=== PATIENT | female | born 1995 | race Caucasian/White ===

== ENCOUNTER 2021-04-03 15:12 | Emergency (ER) | payer OTHER ==
[~2021-04-03] VITALS: Ht 160 cm; Wt 67.1 kg
[2021-04-03 15:21] VITALS: BP 124/66
--- NOTE | 2021-04-03 15:34 | NUR ---
PT AMB TO BED 11
--- NOTE | 2021-04-03 15:50 | NUR ---
25 Y/O FEMALE BIB SELF. PATIENT PRESENTS TO ED WITH ABD PAIN X2 WEEKS. PT STATES PAIN STARTED IN LRQ AND MIGRATED TO RUQ; PAIN WORSENS WITH DEEP INHALE OR TWISTING MOVEMENT, AND RADIATED TO ALL QUADRANTS. PT STATES "SOMETIMES FEELS LIKE PINS/NEEDLES." DENIES N/V/D; SKIN IS PINK/WARM/DRY; AAOX4 WITH EVEN AND STEADY GAIT; PT DENIES ANY FEVER, CP, SOB, OR COUGH AT THIS TIME; PATIENT STATES PAIN OF 7/10 AT THIS TIME; VSS; PATIENT POSITIONED FOR COMFORT; HOB ELEVATED; BEDRAILS UP X2; BED DOWN. ER MD MADE AWARE OF PT STATUS. PT HAS CALM DEMEANOR, UNLABORED BREATHING W/ EQUAL CHEST RISE/FALL, PT AMBULATES W/O ASSISTANCE. HX: DENIES ALLERGIES: "HARD BOILED EGGS" MEDS: DENIES
--- NOTE | 2021-04-03 16:13 | NUR ---
ER PA AT BEDSIDE
[2021-04-03] MEDS ORDERED: DICYCLOMINE HCL LIQUID 20 MG, ALUMINUM HYD/MAG/SIMETHICONE 30 ML, LIDOCAINE VISCOUS 2% ... PO ONE ×3 (16:25)
--- NOTE | 2021-04-03 16:29 | NUR ---
LABS AT BEDSIDE
[2021-04-03] MEDS ORDERED: ALUMINUM HYD/MAG/SIMETHICONE 30 ML UDC ONE ×2 (16:38)
[2021-04-03] MEDS ORDERED: DICYCLOMINE HCL LIQUID 10 MG/5 ML UDC ONE (16:38)
[2021-04-03 16:39] LABS: BASOPHILS % (AUTO) 0.4 % (0.0-2.0); EOSINOPHILS % (AUTO) 0.6 % (0.0-4.0); HEMATOCRIT 40.4 % (36-48); LYMPHOCYTES # (AUTO) 1.4 K/uL (2.5-16.5); LYMPHOCYTES % (AUTO) 29.8 % (20.5-51.1); MEAN CORPUSCULAR HEMOGLOBIN 30 pg (27-31); MEAN CORPUSCULAR HGB CONC 35 g/dL (33-37); MEAN CORPUSCULAR VOLUME 86.4 fL (80-94); MONOCYTES # (AUTO) 0.3 K/uL (0.8-1.0); MONOCYTES % (AUTO) 6.2 % (1.7-9.3); PLATELET COUNT (AUTO) 288 K/uL (140-450); RED BLOOD CELL COUNT(AUTO) 4.67 MIL/uL (4.20-5.40); RED CELL DISTRIBUTION WIDTH 12.4 % (11.6-13.7); WHITE BLOOD COUNT (AUTO) 4.8 K/uL (4.8-10.8)
[2021-04-03 16:59] LABS: ALBUMIN 4.3 g/dL (3.4-5.0); ANION GAP 17.5 (8-16); CARBON DIOXIDE 25.3 mmol/L (21-32); CREATININE 0.8 mg/dL (0.6-1.3); POTASSIUM 3.8 mmol/L (3.5-5.1); TOTAL BILIRUBIN 0.6 mg/dL (0.0-1.0)
[2021-04-03] MEDS ORDERED: OMEP20EC11 PO (17:35)
[2021-04-03] MEDS ORDERED: BEN10 PO (17:35)
[2021-04-03 17:45] VITALS: BP 124/66
--- NOTE | 2021-04-03 17:46 | NUR ---
Patient discharged with v/s stable. Written and verbal after care instructions given and explained. Patient alert, oriented and verbalized understanding of instructions. Ambulatory with steady gait. All questions addressed prior to discharge. ID band removed. Patient advised to follow up with PMD. Rx of DICYCLOMINE HYDROCHLORIDE AND OMEPRAZOLE given. Patient educated on indication of medication including possible reaction and side effects. Opportunity to ask questions provided and answered.PT HAS CALM DEMEANOR, UNLABORED BREATHING W/ EQUAL CHEST RISE/FALL, PT AMBULATES W/O ASSISTANCE.
== END 2021-04-03 17:46 | disposition home or self-care (01) ==
LOC: MED 15:12 → EDBD 15:12 → MED 17:46
DX: R10.13 Epigastric pain (principal); Z79.899 Other long term (current) drug therapy
CPT/HCPCS: 36415; 80053; 81002; 81025; 83690; 85025; 99283